=== PATIENT | female | born 1955 | race Caucasian/White ===

== ENCOUNTER 2025-10-05 00:50 | Day surgery (SDC) | payer MEDICARE, SELFPAY ==
[2025-09-30 09:32] VITALS: BMI 33.0
--- NOTE | 2025-09-30 09:43 | PC.NURSE ---
[facility] has started construction of its new state of the art ER which will open Spring 2026. With this, we anticipate parking may be a challenge for some our surgical patients and families. Parking spaces are limited but are available for all Surgical, obstetrics, and ER patients sharing this lot. If you arrive and find you are having a hard time finding a parking space, please note that we understand the challenges, please drive around the hospital and park near Hospital Entrance 1. When you enter this entrance, you can ask a volunteer to direct or take you back to the surgical waiting area to check in. We appreciate everyone?s understanding of these expected challenges while we build for your future. Report to the Outpatient Waiting Room, entrance under the green pavilion located off [address], at time ___11:00am____ on date __10/05/25 . Planned Procedure Time: ___1:00pm .? Time changes happen often and if your time is changed the preop area will call you the afternoon before. - You and your visitor will be asked to self-screen and do not enter if you have any COVID symptoms. Please call surgeon if you need to reschedule. - A mask is optional within the hospital at this time. Patients may have clear liquids (water, carbonated beverages, clear teas, apple juice) until 3 hours prior to surgery with a maximum of 20 ounces. - No food from midnight until time of surgery and no smoking, or chewing tobacco (or any form of nicotine). No chewing gum, candy or mints. (10:00am) Take only the following medications with a SIP of water on the morning of surgery: NONE DO NOT STOP ANY OF YOUR OTHER PRESCRIPTION MEDICATIONS PRIOR TO SURGERY EXCEPT THE FOLLOWING Hold all vitamins and supplements for 3 days per anesthesiologist. Medications to discontinue per physician NONE Date to take last dose____NONE Please no make-up, nail romanian, hairspray, perfume, deodorant, or body powder the day of surgery.? No jewelry (including any body piercings) or valuables the day of surgery, leave them at home.? Please take a shower or bath the night before, or the morning of, surgery with an antibacterial soap.? DIAL Wear comfortable, loose fitting clothing.? - Jewelry must be removed prior to entering the operating room.? Rings and piercings that are not removed may be cut off. - The hospital will not accept responsibility for valuables.? - Please leave all valuables, including medications, at home the day of surgery. If you are going home after surgery, a licensed lead driver must drive you home.? - NO public transportation without another adult if you receive anesthesia. - We recommend that an adult stay with you for 24 hours following discharge. - We also recommend that you do not drive, make important decision, drink alcoholic beverages, or take any drugs that were not prescribed by your health care provider for at least 24 hours after your discharge time. Follow any additional instructions given to you from your surgeon. Telephone instructions given to _Patient and asked if any additional questions and then verbalized understanding. Patient advised to call surgeon office or pre surgery nurse liaison [phone] if any additional questions.
[2025-10-05] VITALS (11 sets, daily range): BP systolic 151–187; BP diastolic 55–93; PULSE 65–90; RESP 13–17; TEMP 36.2–36.3; O2SAT 96–100; BMI 33.4
--- NOTE | ~2025-10-05 | XR_ITS ---
EXAMINATION: XR retrograde pyelo w/stent LT DATE: 10/05/2025 13:37 INDICATION: Left retrograde pyelogram and ureteral stent exchange TECHNIQUE: 9 fluoroscopic images of the abdomen and pelvis were obtained procedure performed by Dr. Avila. Radiologist was not present for the imaging or procedure. The amount of fluoroscopy time used during this procedure was 0.6 minutes. The dose area product was 0.647 mGym^2. COMPARISON: None. FINDINGS: Junior Network Engineer image demonstrates a left intraureteral stent in expected position with large stone projecting over the ureteral pelvic junction. Subsequent images demonstrate cannulation of the left ureter and advancement of a wire into an upper pole calyx. The stone appears to have refluxed into a middle calyx of the left kidney. Subsequent images demonstrate retrograde contrast injection demonstrating a moderately dilated left renal collecting system. Final images demonstrate placement of a new left intraureteral stent with loops formed in the bladder and in an upper pole calyx of the left kidney. IMPRESSION: 1. Left internal ureteral stent exchange with new stents in expected position. 2. Moderate left hydronephrosis with large stone initially seen at the left ureteropelvic junction which is subsequently likely refluxed into a middle calyx of the left kidney. Correlate with procedure note for further detail. Reviewed, dictated and finalized at location A. UNITY RELATIONS REPRESENTATIVE IMPRESSION: 1. Left internal ureteral stent exchange with new stents in expected position. 2. Moderate left hydronephrosis with large stone initially seen at the left ure teropelvic junction which is subsequently likely refluxed into a middle calyx o f the left kidney. Correlate with procedure note for further detail.
--- OUTSIDE RECORDS SUMMARY | 2025-10-05 02:46 | XMS_ITS | Clinical Summary ---
Author Organization [facility] [facility] Address [address] [place] [id number] Care Team Providers Care Log Deckman Name Role Phone Brent Robins MD, Kristi Glass Primary Care Provide r Allergies Active Allergy Reactions Criticality Noted Date Comments Amlodipine Edema Medium 01/25/2022 Lisinopril Cough Low 03/11/2019 cough Medications albuterol HFA (ProAir HFA) 90 mcg/actuation inhalerIndications:Chr onic cough,Moderate persistent asthma without complication Inhale 2 puffs every 4 (four) hours as needed for wheezing or shortness of breath 3 each 4 022 Active zolpidem (AMBIEN) 5 mg tabletIndications:Psyc hophysiological insomnia TAKE 1 TABLET(5 MG) BY MOUTH EVERY NIGHT NEEDED FOR SLEEP 30 tablet 3 025 Active solifenacin (VESIcare) 5 mg tablet Take 2 tablets (10 mg total) by mouth daily as needed [address] (PROTONIX) 40 mg EC tabletIndications:Phar yngoesophageal dysphagia Take 1 tablet (40 mg total) by mouth daily 90 tablet 4 025 2025 Active atorvastatin (LIPITOR) 40 mg tabletIndications:Esse ntial hypertension,Pure hypercholesterolemia Take 1 tablet (40 mg total) by mouth daily 90 tablet 3 024 2024 Discontinued( Patient Reported) meloxicam (MOBIC) 15 mg tabletIndications:Acut e right hip pain Take 1 tablet (15 mg total) by mouth daily as needed for pain 90 tablet 3 024 2024 Discontinued( Patient Reported) zolpidem (AMBIEN) 5 mg tabletIndications:Psyc hophysiological insomnia TAKE 1 TABLET(5 MG) BY MOUTH EVERY NIGHT NEEDED FOR SLEEP 30 tablet 3 025 2024 Discontinued cyclobenzaprine (FLEXERIL) 10 mg tablet Take 1 tablet (10 mg total) by mouth nightly as needed for muscle spasms for up to 10 days 10 tablet 025 2024 Discontinued( Patient Reported) Active Problems Problem Noted Date Diagnosed Date Pharyngoesophageal dysphagia 09/29/2025 Assessment & Plan (09/29/2025 7:30 AM CARDIAC CATH TECH): Chronic stable Well controlled Continue current prescribed medications protonix at current dose Multiple obstructing stones in biliary tract 10/2025 Hydronephrosis with urinary obstruction due to renal calculus 09/29/2025 Assessment & Plan (09/29/2025 7:11 AM CARDIAC CATH TECH): resolved Urinary tract obstruction by kidney stone 2024 Assessment & Plan (09/29/2025 7:10 AM CARDIAC CATH TECH): S/p stent, following urology Cervical radiculopathy 06/09/2025 Preventative health care 08/14/2022 Assessment & Plan (09/29/2025 7:12 AM CARDIAC CATH TECH): Reviewed previous labs and diagnostic test results. Chronic medical problems evaluated and management plans discussed with the patient. Prescription medications, supplements, vitamins and immunizations reviewed. Wear seatbelts. Use sunscreen. Discussed healthy diet and disease prevention and controlling portions including alcohol Discussed importance of scheduling recommended screening tests. Discussed importance of regular physical examinations for health maintenance. 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 Assessment & Plan (04/06/2024 8:03 AM CDT): Reviewed labs, screenings and vaccines Assessment & Plan (08/14/2022 8:47 AM CDT): Reviewed labs from January, do not need update until then Will get screenings done-mammogran and dexa Contineu current medications Recommend weight loss Class 1 obesity due to exces s calories without serious comorbidity with body mass index (BMI) of 33.0 to 33.9 in adult 08/07/2019 Assessment & Plan (09/29/2025 7:30 AM CARDIAC CATH TECH): Monitor weight Stable Likely related to shift work Assessment & Plan (08/11/2024 8:24 AM CDT): Monitor weight Stable but she is unable to lose weight and feels like something is off, checking labs Assessment & Plan (04/06/2024 8:13 AM CDT): Monitor weight Assessment & Plan (01/25/2022 8:56 AM CARDIAC CATH TECH): Weight has stayed stable Assessment & Plan (07/27/2021 9:57 AM CDT): Continue to monitor Assessment & Plan (08/07/2019 8:16 AM CDT): Recommend a diet high in fruits, vegetables, legumes and low in processed foods. Recommend regular physical activity as patient's condition allows. Chronic cough 06/22/2019 Assessment & Plan (08/14/2022 8:46 AM CDT): Suspect this reactive asthma, she states it gets worse when she is stressed and gets worked up Will try an inhaler, if this works will continue If not, we will consider evaluation Assessment & Plan (08/07/2019 8:25 AM CDT): Cont care under pulmonology Improving Atelectasis 06/22/2019 Shift work sleep disorder 06/22/2019 Assessment & Plan (03/09/2025 9:16 AM CDT): Continues to take ambien prn Assessment & Plan (08/07/2019 7:42 AM CDT): Continue Ambien nightly p.r.n. Gastroesophageal reflux disease without esophagi tis 06/22/2019 Assessment & Plan (08/07/2019 7:43 AM CDT): Follow GERD Diet. Keep HOB elevated 30 degrees at bedtime. Avoid late evening or large meals. Avoid spicy, rich or fried foods. Limit caffeine intake. Work on wt loss. Eat calcium and vit d rich foods to avoid Bone loss. Eat Iron rich foods to avoid iron deficiency anemia. B12 level may need monitoring q 1-2yrs if on mcfp therapy. CKD (chronic kidney disease), stage II 6 Assessment & Plan (09/29/2025 7:10 AM CARDIAC CATH TECH): Monitor, renally dose medications Assessment & Plan (08/11/2024 8:24 AM CDT): Monitor, renally dose medications Assessment & Plan (04/06/2024 8:12 AM CDT): Monitor renal function Assessment & Plan (07/27/2021 9:51 AM CDT): Stable at baseline Assessment & Plan (08/07/2019 7:43 AM CDT): Careful with NSAIDs and PPI use Pure hypercholesterolemia 04/17/2016 Assessment & Plan (08/11/2024 8:24 AM CDT): Chronic stable Well controlled Continue current prescribed medications lipitor at current dose Assessment & Plan (04/06/2024 8:13 AM CDT): Will restart statin Assessment & Plan (07/27/2021 9:51 AM CDT): Takes lipitor every day Assessment & Plan (08/07/2019 7:43 AM CDT): Follow step 1 low cholesterol diet. Report if having problems with daily nausea or extreme muscle aches and weaknesses throughout the body. Monitor lipids annually or on a regular basis. Recommend to continue with current medication. Check lab Other abnormal glucose 04/17/2016 Assessment & Plan (01/25/2022 8:57 AM CARDIAC CATH TECH): Will continue to recheck Hgba1c Assessment & Plan (08/07/2019 7:43 AM CDT): A1c: needs checked Watch sugars and carbs in diet. Work on exercise and weight loss Essential hypertension 03/30/2016 Assessment & Plan (03/09/2025 7:54 AM CDT): Still not taking any but blood pressure is fine Assessment & Plan (08/11/2024 8:11 AM CDT): Currently not on any medication and BP is okay today Assessment & Plan (04/06/2024 8:13 AM CDT): Will check at home once she is not in pain and report back her pressures Assessment & Plan (08/14/2022 8:45 AM CDT): Well controlled for her, down significantly Had a rough night at work and had a fight with someone before leaving, suspect this is why it is slightly elevated Assessment & Plan (01/25/2022 8:56 AM CARDIAC CATH TECH): Amlodipine causes lower ankle swelling Will do combo pill hyzaar Assessment & Plan (07/27/2021 9:57 AM CDT): Continue losartan Adding amlodipine today concerned for numbness in her lower lip Stopping mobic Assessment & Plan (08/07/2019 7:43 AM CDT): Follow low sodium DASH Diet. Exercise regularly for CV health and weight loss. Achieve or Maintain normal BMI/Weight. Take medications as prescribed. Report if having porblems with the medication or if develops Chest pains. Monitor BP occly and record. Report if BP consistently over 160/90 or under 90/60 and dizzy and LH. BP is controlled and stable. Insomnia 03/30/2016 Assessment & Plan (09/29/2025 7:30 AM CARDIAC CATH TECH): Chronic stable Well controlled Continue current prescribed medications mehnaz at current dose Assessment & Plan (01/25/2022 8:57 AM CARDIAC CATH TECH): From her work hours and stress from job Resolved Problems Problem Noted Date Diagnosed Date Resolved Date Acute infection of nasal sinus 10/15/2022 04/06/2024 Assessment & Plan (10/15/2022 11:23 AM CARDIAC CATH TECH): Augmentin 875-125 mg twice best for 7 days Medrol dosepack, take per package instructions Benzonatate 100 mg up to three times daily for cough Nasal saline wash, either Neti Pot or Sinus Rinse DAILY or a saline nasal spray 3-4 times a day. Guaifenesin expectorants (Maximum Strength Mucinex, Robitussin, store brand) to loosen secretions. For cough you can use dextromethorphan (Delsym syrup, Robitussin cough capsules or store brand). Avoid decongestants due to risk of raising blood pressure, take otc Coricidin per package directions -Increase fluids, especially water -Steam inhalation and warm compress to face often help relieve pressure -Avoid allergens and excessively dry heat -Sleep with head of bed elevated to encourage drainage. -Use of a humidifier if environment is heated by dry forced - air system -Avoid smoking, second-hand smoke and air pollutants. -If you are not improving or worsening, or develop facial swelling, in the next 3-5 days you must RETURN to the clinic, go to your PCP, or Urgent Care/ER to be SEEN and reevaluated. No further prescriptions or refills will be given by phone without another evaluation. Skin lesion of chest wall 05/24/2020 Itching 05/24/2020 04/06/2024 Obesity 03/30/2016 04/06/2024 Assessment & Plan (08/07/2019 7:44 AM CDT): Recommend a diet high in fruits, vegetables, legumes and low in processed foods. Recommend regular physical activity as patient's condition allows. Encounters Date Type Department Care Team Description 09/29/2025 7:00 AM CARDIAC CATH TECH Office Visit [address] [phone] Kristi Kennedy Jr., MD [facility] health care (Primary Dx); Urinary tract obstruction by kidney stone; CKD (chronic kidney disease), stage II; Primary insomnia; Asymptomatic menopause; Class 1 obesity due to excess calories without serious comorbidity with body mass index (BMI) of 33.0 to 33.9 in adult; Hydronephrosis with urinary obstruction due to renal calculus; Pharyngoesophageal dysphagia 09/23/2025 [facility] [address] [address] Mckenzie Nogueira MA 09/21/2025 [facility] [address] [address] Maryse Liang MA 09/21/2025 [facility] [address] [address] Mckenzie Nogueira MA 09/20/[address] [phone] Kristi Kennedy Jr., MD [facility] 09/17/2025 11:45 AM CDT - 09/17/2025 11:59 PM CDT Hospital Encounter [facility] [address] [place] [address] History of diverticulitis; Generalized abdominal pain Discharge Disposition: Discharge to home or self care 09/17/2025 10:30 AM CDT Office Visit [address] [phone] Kristi Kennedy Jr., MD History of diverticulitis (Primary Dx); Generalized abdominal pain; Urinary tract obstruction by kidney stone 09/17/[address] [phone] Kristi Kennedy Jr., MD CT Results; Test Results 09/17/2025 Nurse Triage [facility] [address] [place] [phone] Kristi Kennedy Jr., MD 08/13/2025 Telephone [facility] [address] [place] [phone] Kristi Kennedy Jr., MD Missed appt 07/21/2025 7:00 AM CDT Therapy [facility] [address] [place] [phone] Dante Leyva, PT Cervical radiculopathy (Primary Dx) 07/15/2025 7:00 AM CDT Therapy [facility] [address] [place] [phone] Dipesh Paez, [employer] Cervical radiculopathy (Primary Dx); Right shoulder pain, unspecified chronicity 07/13/2025 7:00 AM CDT Therapy [facility] [address] [place] [phone] Dipesh Paez, [employer] HAND Cervical radiculopathy (Primary Dx); Right shoulder pain, unspecified chronicity 07/07/2025 Plan of Care Documentation [facility] [address] [place] [phone] 07/06/2025 7:00 AM CDT Therapy [facility] [address] [place] [phone] Dante Leyva, PT Cervical radiculopathy (Primary Dx); Right shoulder pain, unspecified chronicity from Last 3 Months Immunizations Immunization Administration Dates Next Due Influenza, Quadrivalent, Hig h Dose, Preservative Free, Intrr 08/14/2022,07/27/2021 Influenza, Quadrivalent, Spl it, Preservative Free, Intramuscular 08/07/2019,10/18/2017,09/23/2016 Influenza, Trivalent, IM (MDV) 09/24/2016 Influenza, Trivalent, Preser vative Free, Intramuscular 10/10/2017,08/22/2015 Influenza, Unspecified 09/29/2025(Deferr ed: Patient Refused),09/29/2025(Deferred: Patient Refused),08/11/2024(Deferred: Patient Refused),09/18/2023(Deferred: Patient Refused) Pfizer SARS-CoV-2 Monovalent Vaccination (12+ Yrs) PURPLE 08/23/2021,12/27/2020 Pneumococcal Conjugate PCV 13 07/27/2021(Deferre d: Patient Refused) TD Preservative Free 04/02/2016 Tdap 04/02/2016 ZOSTER Recombinant 01/25/2022(Deferred: Patient Refused),07/27/2021(Deferred: Patient Refused) Surgical History Surgery Date Site/Laterality Comments GALLBLADDER SURGERY TUBAL LIGATION FLUORO GUIDED INJECTION SHOULDER LEFT 03/15/2017 Lef t Medical History Medical History Date Comments Hypertension Insomnia Pre-diabetes Chronic kidney disease Hyperlipidemia Obesity 03/30/2016 GERD (gastroesophageal reflux disease) Family History Relation Name Status Comments Father Mother Social History Tobacco Use Types Packs/Day Years Used Date Smoking Tobacco: Former Cigarettes 1 14 Smokeless Tobacco: Never Tobacco Cessation:Counseling Given: Not Answered Alcohol Use Standard Drinks/Week Comments Not Currently 0 (1 standard drink = 0.6 oz pur e alcohol) PHQ-2 Answer Date Recorded PHQ-2 Total Score (If total score is 3 or more points, staff should administer the PHQ-9) 1 09/29/2025 PHQ-9 Answer Date Recorded PHQ-9 Total Score 8 04/06/2024 AUDIT-C Answer Date Recorded Q1: How often do you have a drink containing alcohol? Never 09/29/2025 Q2: How many drinks containi ng alcohol do you have on a typical day when you are drinking? Patient does not drink Q3: How often do you have si x or more drinks on one occasion? Never 09/29/2025 Comments No Sex and Gender Information Value Date Recorded Sex Assigned at Not on file Legal Sex Female 5:51 PM CARDIAC CATH TECH Gender Identity Not on file Sexual Orientation Not on file Obstetrics History Para Term AB IAB SAB Ectopic Multiple Livin g Live Births 2 2 2 Date Outcome GA Total Labor Labor/2nd/3rd Weight Sex Type Anes PTL Marylin A1 A5 Name Clin Term Term Last Filed Vital Signs Vital Sign Reading Time Taken Comments Blood Pressure 144/76 09/29/2025 6:54 AM CARDIAC CATH TECH Pulse 64 09/29/2025 6:54 AM CARDIAC CATH TECH Temperature 36.1 C (97 F) 09/29/2025 6:54 AM CARDIAC CATH TECH Respiratory Rate 18 09/29/2025 6:54 AM CARDIAC CATH TECH Oxygen Saturation 97% 09/29/2025 6:54 AM CARDIAC CATH TECH Inhaled Oxygen Concentration - - Weight 83 kg (183 lb) 09/29/2025 6:54 AM CARDIAC CATH TECH Height 157.5 cm (5' 2) 09/29/2025 6:54 AM CARDIAC CATH TECH Body Mass Index 33.47 09/29/2025 6:54 AM CARDIAC CATH TECH Plan of Treatment Health Maintenance Due Date Last Done Comments Hepatitis B Screening 1973 Osteoporosis Screening-Bone Density Scan 05/07/2018 05/07/2016, 05/02/2016 Covid-19 Vaccine ( season) 2025 08/23/2021, 01/22/2021, 12/27/2020 Zoster Vaccine (1 of 2) 03/09/2026 Post poned from 2005 (Insurance / Financial) DTaP/Tdap/Td Vaccine (3 - Td or Tdap) 04/02/2026 04/02/2016, 04/02/2016 Breast Cancer Screening-Mammogram 04/05/2026 04/05/2025, 07/24/2018, 07/24/2018, Additional history exists Influenza Vaccine (#1) 2026 , 07/27/2021, 08/07/2019, Additional history exists Postponed from 07/19/2025 (Patient declined, but will receive in the future) Depression Screening 09/29/2026 09/29/2025, 09/17/2025, 06/09/2025, Additional history exists Fall Risk Assessment 09/29/2026 09/29/2025, 04/06/2024, 08/14/2022, Additional history exists Well Visit 65+ 09/29/2026 09/29/2025, 05, 08/14/2022, Additional history exists Colon Cancer Screening-Colonoscopy 09/24/2028 09/24/2018 Colon Cancer Screening-CT Colonography Discontinued 09/24/2018 Colon Cancer Screening-DNA Stool Discontinued 09/24/2018 Colon Cancer Screening-FIT Discontinued 09/24/2018 Colon Cancer Screening-Sigmoidoscopy Discontinued 09/24/2018 Hepatitis C Screening Discontinued Pneumococcal vaccine 65+ Discontinued Procedures Procedure Name Priority Date/Time Associated Diagnosis Comments CT ABDOMEN PELVIS WO CONTRAST Schedule AMAURY, Read AMAURY (Appt Today, Awaiting Results) 09/17/2025 11:55 AM CDT History of diverticulitis Generalized abdominal pain SCREENING MAMMOGRAM BILATERAL W LEONARD Schedule Routine, Read Routine (OP Routine) 04/05/2025 2:28 PM CDT Screening mammogram for breast cancer COLONOSCOPY Routine 09/24/2018 DEXA SCAN Routine 05/07/2016 from Last 3 Months or Most Recently Relevant to Health Maintenance Results * CT Abdomen Pelvis WO Contrast (09/17/2025 11:55 AM CDT) Anatomical Region Laterality Modality Body N/A Computed Tomogra phy 09/17/2025 12:1 1 PM CDT Impressions 09/17/2025 12:11 PM CDT 1. Moderate left-sided obstructive uropathy with a 1.6 cm obstructing calculus in the left ureteropelvic junction. 2. Mild acute uncomplicated diverticulitis involving the distal descending colon and proximal sigmoid colon. No definite unenhanced CT evidence of perforation or peridiverticular abscess. Further evaluation with colonoscopy is recommended after the conclusion of patient's acute symptoms, if one has not been performed recently as clinically indicated. 3. No definite evidence of a bowel obstruction. 4. Circumferential mucosal thickening of the urinary bladder, which may related ascension versus cystitis. Clinical correlation with urinary analysis is recommended as clinically indicated. 5. Nonobstructing left renal calculus measuring 0.5 cm. 6. Normal appendix. The findings were discussed with Dr. Kennedy by Dr. Quinn on 09/17/2025 12:09 PM . Electronically signed by: Prosper Quinn D.O. Narrative 09/17/2025 12:11 PM CDT EXAMINATION: CT ABDOMEN PELVIS WO CONTRAST ORDERING HEALTHCARE PROVIDER: KRISTI KENNEDY Jr. HISTORY: Diverticulitis, complication suspected. Hx of diverticulitis . Left lower abdominal pain /flank pain x 2-3 days[address] TECHNIQUE: CT abdomen and pelvis without intravenous and without oral contrast. Reconstructed coronal and sagittal MPR images reviewed. All images stored on PACS. Automated exposure control was used as a dose optimization technique for this examination. COMPARISON: None. FINDINGS: The sensitivity for detection of visceral lesions is diminished without the use of intravenous contrast. LOWER CHEST: The heart size is normal. There is no definite evidence of a pericardial effusion. There are mild atherosclerotic changes of aorta. There is minimal to mild bibasilar subsegmental atelectasis and scarring. There is a small hiatal hernia. LIVER: The liver is grossly normal in size and contour. GALLBLADDER: Surgically absent. BILIARY:There is no definite evidence of intrahepatic or extrahepatic biliary ductal dilatation. SPLEEN: The spleen is grossly normal in size and unremarkable. PANCREAS: The pancreas has a grossly unremarkable unenhanced CT appearance. ADRENALS: The bilateral adrenal glands are grossly symmetrical and unremarkable. KIDNEYS/URINARY TRACT: There is no definite unenhanced CT evidence of a focal renal lesion. There is a 0.5 cm nonobstructing left renal calculus. There is moderate left hydronephrosis with a 1.6 cm obstructing calculus in the left ureteropelvic junction. There is circumferential mucosal thickening of the urinary bladder. GI: There is no definite evidence of a bowel obstruction. The appendix is visualized without definite evidence of pericecal or periappendiceal inflammatory changes to suggest appendicitis. There is colonic diverticulosis with mucosal thickening of the distal descending colon and proximal sigmoid colon with pericolonic inflammatory changes. There is a small fat-containing periumbilical hernia. There is no definite evidence of free air in the abdomen and pelvis to suggest perforation. There is no definite evidence of free fluid in the abdomen and pelvis. There is no definite unenhanced CT evidence of a pericolonic fluid collection to suggest peridiverticular abscess. There is no definite CT evidence of lymphadenopathy in the abdomen and pelvis. REPRODUCTIVE: There is no definite unenhanced CT evidence of a large ovarian or uterine mass. MUSCULOSKELETAL: There is mild osteopenia. There is a mild dextroscoliotic curvature the spine with degenerative changes. OTHER: No other acute findings. Procedure Note Prosper Quinn, DO - 09/17/2025 EXAMINATION: CT ABDOMEN PELVIS WO CONTRAST ORDERING HEALTHCARE PROVIDER: KRISTI KENNEDY Jr. HISTORY: Diverticulitis, complication suspected. Hx of diverticulitis . Left lower abdominal pain /flank pain x 2-3 days[address] TECHNIQUE: CT abdomen and pelvis without intravenous and without oral contrast. Reconstructed coronal and sagittal MPR images reviewed. All images stored on PACS. Automated exposure control was used as a dose optimization technique for this examination. COMPARISON: None. FINDINGS: The sensitivity for detection of visceral lesions is diminished without the use of intravenous contrast. LOWER CHEST: The heart size is normal. There is no definite evidence of a pericardial effusion. There are mild atherosclerotic changes of aorta. There is minimal to mild bibasilar subsegmental atelectasis and scarring. There is a small hiatal hernia. LIVER: The liver is grossly normal in size and contour. GALLBLADDER: Surgically absent. BILIARY:There is no definite evidence of intrahepatic or extrahepatic biliary ductal dilatation. SPLEEN: The spleen is grossly normal in size and unremarkable. PANCREAS: The pancreas has a grossly unremarkable unenhanced CT appearance. ADRENALS: The bilateral adrenal glands are grossly symmetrical and unremarkable. KIDNEYS/URINARY TRACT: There is no definite unenhanced CT evidence of a focal renal lesion. There is a 0.5 cm nonobstructing left renal calculus. There is moderate left hydronephrosis with a 1.6 cm obstructing calculus in the left ureteropelvic junction. There is circumferential mucosal thickening of the urinary bladder. GI: There is no definite evidence of a bowel obstruction. The appendix is visualized without definite evidence of pericecal or periappendiceal inflammatory changes to suggest appendicitis. There is colonic diverticulosis with mucosal thickening of the distal descending colon and proximal sigmoid colon with pericolonic inflammatory changes. There is a small fat-containing periumbilical hernia. There is no definite evidence of free air in the abdomen and pelvis to suggest perforation. There is no definite evidence of free fluid in the abdomen and pelvis. There is no definite unenhanced CT evidence of a pericolonic fluid collection to suggest peridiverticular abscess. There is no definite CT evidence of lymphadenopathy in the abdomen and pelvis. REPRODUCTIVE: There is no definite unenhanced CT evidence of a large ovarian or uterine mass. MUSCULOSKELETAL: There is mild osteopenia. There is a mild dextroscoliotic curvature the spine with degenerative changes. OTHER: No other acute findings. IMPRESSION: 1. Moderate left-sided obstructive uropathy with a 1.6 cm obstructing calculus in the left ureteropelvic junction. 2. Mild acute uncomplicated diverticulitis involving the distal descending colon and proximal sigmoid colon. No definite unenhanced CT evidence of perforation or peridiverticular abscess. Further evaluation with colonoscopy is recommended after the conclusion of patient's acute symptoms, if one has not been performed recently as clinically indicated. 3. No definite evidence of a bowel obstruction. 4. Circumferential mucosal thickening of the urinary bladder, which may related ascension versus cystitis. Clinical correlation with urinary analysis is recommended as clinically indicated. 5. Nonobstructing left renal calculus measuring 0.5 cm. 6. Normal appendix. The findings were discussed with Dr. Kennedy by Dr. Quinn on 09/17/2025 12:09 PM . Electronically signed by: Prosper Quinn D.O. Kristi Kennedy Jr., MD IM CT PROCEDURES Fin al Result * Screening Mammogram Bilateral W Leonard (04/05/2025 2:28 PM CDT) Anatomical Region Laterality Modality Breast Bilateral Mammography Impressions 04/05/2025 2:33 PM CDT Bilateral No evidence of malignancy in either breast. OVERALL BI-RADS FINAL ASSESSMENT: 1 - Negative RECOMMENDATION: Recommend bilateral annual screening mammography. Narrative 04/05/2025 2:33 PM CDT EXAMINATION: Screening Mammogram Bilateral W Leonard: 04/05/2025 COMPARISON: Relevant prior studies available at the time of interpretation were reviewed. TECHNIQUE: Mammography was performed with 2D and digital breast tomosynthesis (DBT) images. CAD was utilized. BREAST PARENCHYMAL COMPOSITION: The breasts are heterogeneously dense, which may obscure small masses. FINDINGS: Bilateral There is no suspicious mass, calcification, or architectural distortion in either breast. Kristi Kennedy Jr., MD IMG MAMMO PROCEDURES Final Result * COLONOSCOPY (09/24/2018) Colonoscopy Unknown Historical Provider HEALTH MAINTENANCE Final Result * DEXA SCAN (05/07/2016) DEXA Scan Unknown Historical Provider HEALTH MAINTENANCE Final Result from Last 3 Months or Most Recently Relevant to Health Maintenance Insurance [employer] MEDICARE PPO Care Teams Log Deckman Relationship Specialty Start Date End Date Krisit Kennedy Jr., MD [address] [place] [id number] PCP - General Internal Medicine 06/23/20
--- OUTSIDE RECORDS SUMMARY | 2025-10-05 02:46 | XMS_ITS | Encounter Summary ---
Author Organization [facility] Healthcare Address [address] [place] [address] Care Team Providers Care Lead Ramp Agent Name Role Phone Brent Robins MD, Trevon Glass Primary Care Provide r Mirlande Mckenzie COTY Unavailable Reason for Visit * Reason Onset Date Comments MIGUE or AWV 09/20/2025 Encounter Details Date Type Department Care Team ([facility] st Contact Info) Description 09/20/2025 Telephone [facility] Medical Group Primary Care [address] [place] [phone] Trevon Kennedy Jr., MD [address] [place] [phone] MIGUE or AWV Social History Tobacco Use Types Packs/Day Years Used Date Smoking Tobacco: Former Cigarettes 1 14 Smokeless Tobacco: Never Alcohol Use Standard Drinks/Week Comments Yes 0 (1 standard drink = 0.6 oz pur e alcohol) PHQ-2 Answer Date Recorded PHQ-2 Total Score (If total score is 3 or more points, staff should administer the PHQ-9) 1 09/17/2025 PHQ-9 Answer Date Recorded PHQ-9 Total Score 8 04/06/2024 AUDIT-C Answer Date Recorded Q1: How often do you have a drink containing alc ohol? Monthly or less 09/17/2025 Q2: How many drinks containi ng alcohol do you have on a typical day when you are drinking? 1 or 2 09/17/2025 Q3: How often do you have si x or more drinks on one occasion? 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 Kennedy. Pt then went to [facility] and had emergency surgery done after visit on 09/17/25 (a stint was placed), Pt was released 09/18/25. Pt states she also has to go to [place] in the next two weeks to have another procedure done. Currently Pt has her AWV set for 09/29/25, wants to know if she will need MIGUE appt before then? Or if she can just come to her awv? MAN documented in this encounter Plan of Treatment Not on file documented as of this encounter Visit Diagnoses Not on filedocumented in this encounter Care Teams Lead Ramp Agent Relationship Specialty Start Date End Date Trevon Kennedy Jr., MD [address] [place] [phone] PCP - General Internal Medicine 06/23/20 Mckenzie Nogueira MA [address] [place] [address] ACO Care Radiologist Chief Of Breast Imaging 09/21/25 09/22/25 documented as of this encounter
--- OUTSIDE RECORDS SUMMARY | 2025-10-05 02:46 | XMS_ITS | Clinical Summary ---
Author Organization [facility] Address [address] [place] [address] Care Team Providers Care Property Management Intern Name Role Phone Mare Turner PA-C Primary Care Provider [phone] Source Comments [facility],non-owned Affiliates and Associated Physician Practices is amultiple site organization consisting of ambulatory clinics and hospital sitesin [place], [place], [place] and [place]. This disclosure is being madepursuant to the Care Everywhere program and may not contain all information available regarding this patient. 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 Gender Identity Not on file Sexual Orientation Not on file Plan of Treatment Health Maintenance Due Date Last Done Comments BONE DENSITY TESTING 1955 COLOGUARD (AGES 45-75) - COL ON CA SCREENING 1955 COLON MONITORING 1955 COLONOSCOPY - COLON CA SCREENING 1955 CT COLONOGRAPHY - COLON CA SCREENING 1955 Colorectal Cancer Screening 1955 FIT - COLON CA SCREENING 1955 FLEX SIG - COLON CA SCREENING 1955 LIPID TESTING 1955 MAMMOGRAM 1955 HEPATITIS C SCREENING 01/13/1973 DTAP/TDAP/TD VACCINES (1 - Tdap) 1974 PNEUMOCOCCAL VACCINE 50+ (1 of 1 - PCV) 2005 ZOSTER VACCINE (1 of 2) 2005 DEPRESSION SCREENING 11/18/2024 COVID-19 VACCINE (1 - 2024-2 6 season) 2025 INFLUENZA VACCINE (#1) 2025 9, 10/18/2017, 09/24/2016 Respiratory Syncytial Virus (RSV) Vaccine Pt: or over 60 yrs (1 - 1-dose 75+ series) 2030 HEPATITIS B VACCINE Aged Out No longe r eligible based on patient's age to complete this topic HIB VACCINE Aged Out No longer eligi ble based on patient's age to complete this topic HPV VACCINE Aged Out No longer eligi ble based on patient's age to complete this topic MENINGOCOCCAL (Group B) VACCINE SHARED DECISION-MAKING Aged Out No longer eligible based on patient's age to complete this topic MENINGOCOCCAL GROUPS A/C/Y/W VACCINE Aged Out No longer eligible b ased on patient's age to complete this topic Insurance DR [id number] Care Teams Property Management Intern Relationship Specialty Start Date End Date Mare Turner PA-C [address] [place] [address] PCP - General 10/02/19
--- OUTSIDE RECORDS SUMMARY | 2025-10-05 02:47 | XMS_ITS | Encounter Summary ---
Author Organization [facility] Care Team Providers Care Ostrich Farm Worker Name Role Phone Mare Turner Primary Care Provider [phone] Brent Robins MD, Trevon Glass Primary Care Provide r Mckenzie Nogueira MA Unavailable [phone] Encounter Details Date Type Department Care Team (Latest Contact Info) Description 03/30/2016 Orders Only [facility] CLINCONV ProviderErvin MD [address] [place] [id number] Social History Tobacco Use Types Packs/Day Years Used Date Smoking Tobacco: Never Assessed Comments Unknown Sex and Gender Information Value Date Recorded Sex Assigned at Not on file 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 Historical Provider [facility] JUANJO BULLOCK Final Result documented in this encounter Visit Diagnoses Not on filedocumented in this encounter Additional Health Concerns Infection Onset Date Last Indicated Resolved Time COVID: Suspected 10/22/2022 10/22/2022 10/22/2022 3:12 PM NURSING PROFESSOR documented as of this encounter Care Teams Ostrich Farm Worker Relationship Specialty Start Date End Date Mare Turner PA [address] [place] [address] PCP - General Internal Medicine 02/13/19 06/22/20 Trevon Kennedy Jr., MD [address] [place] [address] PCP - General Internal Medicine 06/23/20 Mckenzie Nogueira MA [address] [place] [address] [address] [place] [address] ACO Care Prescription Benefit Specialist 09/21/25 09/22/25 documented as of this encounter
--- NOTE | 2025-10-05 09:24 | WPDHPUPDATE1 ---
History and Physical Update Update Date/Time: 10/05/25 09:24 History and Physical has been reviewed, including an updated exam of the patient. There are NO changes in the patient's condition. Risks, benefits, and alternatives have been discussed and questions answered. Patient agrees to proceed with procedure.
--- NOTE | 2025-10-05 09:24 | PM.HPGS ---
History of Present Illness History of Present Illness Consent: Risks, benefits, and alternatives have been discussed and questions answered. Patient agrees to proceed with procedure. Chief complaint: left ureteral and renal stone Narrative: Kia Soto is a 70 year old female who was found on recent imaging to have large volume stone burden in her left kidney measuring over 2 cm. She had placement of left ureteral stent recently and presents today for a staged endoscopic surgery for stone treatment using CVAC. He denies any changes past her baseline and is ready for the procedure today. Review of Systems Review of Systems: Constitutional: No fevers or chills Eyes: No changes in vision HENT: No hearing loss Cardiovascular: No chest pain or palpitations Respiratory: No shortness of breath, cough, wheezing GI: No abdominal pain, nausea, or vomiting : No dysuria or difficulty urinating Heme: No easy bruising or bleeding Skin: No rash or itching MSK: No myalgias or joint pain Psych: No hallucinations Neuro: No lateralized numbness or tingling PMFSH Social History Social History Smoking status: Never smoker Second hand tobacco smoke exposure: No Alcohol intake: never Substance use: never Living arrangements: with family Additional living arrangements comments: Spiritual care concerns: No Meds Home Medications and Allergies Home Medications ?Medication ?Instructions ?Recorded ?Confirmed ?Type zolpidem 5 mg tablet (Ambien) 5 mg PO HS PRN sleep 09/30/25 09/30/25 History Allergies Allergy/AdvReac Type Severity Reaction Status Date / Time amlodipine AdvReac Intermediate Swelling Verified 09/30/25 09:31 lisinopril AdvReac Intermediate cough Verified 09/30/25 09:31 Exam Narrative: General: Alert, no acute distress Head: Normocephalic, atraumatic Eyes: Extraocular movements intact Neck: No JVD, trachea midline Respiratory: Symmetric chest rise, nonlabored breathing on room air CV: Normal rate, adequate peripheral perfusion Abdomen: Soft, nontender, nondistended Skin: Warm/dry Extremities: No peripheral edema, no cyanosis Neuro: No focal deficits Psych: Answers questions appropriately, appropriate mood Assessment and Plan Assessment and plan (1) Urolithiasis: Code(s): N20.9 - Urinary calculus, unspecified Status: Acute Assessment and Plan: 70-year-old female with large volume stone burden in her left kidney status post recent placement of left ureteral stent - To OR for cystoscopy, left retrograde pyelogram, ureteroscopy with CVAC, left ureteral stent exchange - Risks, benefits, alternatives reviewed with the patient. She is amenable to proceed. - 2 grams IV Ancef construction services technician to OR - Anticipate discharge home thereafter
--- NOTE | 2025-10-05 09:44 | WPDANESEPPF ---
Anes - Initial Pre Proc Eval Procedure: Operation Date: 10/05/25 11:30 Proposed Procedures p Cystoscopy, Left Retrograde Pyelogram, Left Ureteroscopy, Left Ureteral Stent Exchange - Monroe Avila MD Date/Time: 10/05/25 09:44 Surgeon: Monroe Avila MD Pre Op Diagnosis: left ureteral and renal stone Patient Data Age: 70 Gender: F Height: 1.57 m Weight: 82 kg Allergies Allergy/AdvReac Type Severity Reaction Status Date / Time amlodipine AdvReac Intermediate Swelling Verified 09/30/25 09:31 lisinopril AdvReac Intermediate cough Verified 09/30/25 09:31 Home Medications ?Medication ?Instructions ?Recorded ?Confirmed ?Type zolpidem 5 mg tablet (Ambien) 5 mg PO HS PRN sleep 09/30/25 09/30/25 History Patient hx anesthesia problems: none Family hx anesthesia problems: none Results Review: All pre-operative results and documents have been reviewed as part of the pre-operative evaluation. [facility] Past Medical History Medical History (Updated 10/05/25 @ 09:45 by Bernardino Hickey MD) Obesity Surgical History Surgical History (Updated 10/05/25 @ 09:45 by Bernardino Hickey MD) Hx of cystoscopy Social History Social History Smoking status: Never smoker Second hand tobacco smoke exposure: No Alcohol intake: never Substance use: never Living arrangements: with family Additional living arrangements comments: Spiritual care concerns: No Anes - Eval Final PreProcedure Day of Procedure 10/05/25 09:44 Patient weight: obese Heart: regular rate and rhythm Lungs: clear to auscultation Airway: Mallampati scale class II Neurological: alert and oriented Last oral intake: >/= 8 hours ASA classification: II Emergent: no Anesthetic plan: proceed Anesthesia type and monitoring: general LMA and standard monitoring Results Review: All pre-operative results and documents have been reviewed as part of the pre-operative evaluation. Informed Consent: The patient's anesthetic plan and its attendant risks and benefits were discussed with the patient/family/POA. Questions were solicited and answers provided to the satisfaction of the patient/family/POA.
[2025-10-05] MEDS: LACTATED RINGERS 1,000 ML 30 ML IV CONT ×2 (09:50→13:09)
[2025-10-05] MEDS: ceFAZolin 2 GM in SODIUM CHLORIDE 0.9% IV 50 ML 100 ML IVPB (11:17)
--- NOTE | 2025-10-05 13:03 | S_PTH ---
PATIENT: Kia Sinclair LOC: [facility] U#:[id number] AGE/SX: 70/F ROOM: RE10/05/[address]: Monroe Avila MD : 1955 BED: DIS: 10/05/2025 SPEC #: [id number] RECD: 10/05/25 13:06 STATUS: NOEMÍ RELeda #: [id number] KIKA: 10/05/25 13:[address]: Monroe Avila DEPT: [facility] Surgical RECD BY: Cade Bruno ENTERED: 10/05/25 13:06 SP TYPE: Surgical OTHR DR: Trevon KennedyJr. MD Tissues: A - Stone Procedures: Gross Exam Level 1 Crystalline Analysis
--- NOTE | 2025-10-05 13:22 | W.PM.PROC2 ---
Procedure Note - Detailed Date of Procedure 10/05/25 Pre-op Diagnosis left ureteral and renal stone Post-op Diagnosis Same Procedure Performed 1. Cystoscopy 2. Left retrograde pyelogram with interpretation 3. Left ureteroscopy with laser lithotripsy and CVAC 4. Left ureteral stent exchange Surgeon Monroe Avila MD Anesthesia General Findings 1. Cystoscopy revealed an appropriately positioned left ureteral stent with no suspicious lesions, tumors, active bleeding, or stones in the lower urinary tract 2. Modifier 22 -- please note that this case required significantly greater effort, increased intensity, time, technical difficulty of procedure, and physical and mental effort required, than is usually needed for this procedure secondary to the significant and large stone burden exceeding 2 cm as well as the large and very densely impacted 1.6 cm stone at the left ureteropelvic junction which first required careful and extensive laser lithotripsy through a traditional ureteroscope in order to fragment the stones and push them in the kidney followed by performing CVAC lithotripsy with aspiration of stone fragments. Overall stone treatment time was roughly 1.5 to 2 hours. 3. Left retrograde pyelogram performed after stone treatment showed mild left hydronephrosis but no contrast extravasation or filling defects 4. Pullback ureteroscopy revealed no residual ureteral stones. Given the impacted stone at the left UPJ there was mucosal edema at this location. There was no ureteral injury. 5. Successful left ureteral stent exchange without strings attached Description of Procedure After informed consent was obtained, the patient was brought back to the operating theatre and placed in the supine position on the operating table. Pre-operative antibiotics were confirmed to have been administered. Anesthesia was induced. The patient was moved into the dorsal lithotomy position and prepped and draped in the standard sterile fashion for an endoscopic case. All pressure points were padded. Bilateral sequential compression devices were on and noted to be functioning. A formal timeout was performed with Dr. Avila in attendance to confirm the correct patient, site/laterality, and procedure and all were in agreement to proceed. To begin with, I atraumatically advanced a lubricated 22-Romanian rigid cystoscope transurethrally into the patient's bladder. Pancystoscopy was performed with findings as noted above. Attention was then turned to the left ureteral orifice, from which was seen emanating the patient's left existing stent in appropriate position. Alongside the stent I advanced a Sensor up the level of left kidney under fluoroscopy. I then removed the cystoscope and secured the Sensor wire to the drapes with hemostat. I then reinserted the cystoscope into the bladder and used flexible graspers to grasp the existing stent and bring it out through the urethral meatus. The 2nd stent was cannulated with a 2nd safety Glidewire and advanced up to the level of left kidney under fluoroscopy. Next, I advanced a 12/14 Romanian 36 cm ureteral access sheath and under direct fluoroscopic guidance I advanced this to the level of the left proximal ureter, just distal to a large radiopaque stone at the level of left ureteropelvic junction. I then removed the inner sheath and advanced the CVAC scope through the outer sheath. There was a very large approximately 1.6 cm densely impacted stone at the left ureteropelvic junction. I was unable to visualize my laser fiber as I advanced it through the CVAC scope. As such, I asked for a flexible digital ureteral scope and advanced this through the access sheath and was able to visualize my 200 micron Geoffrey laser fiber. Next, for an extended period of time, roughly 30-45 minutes, I carefully lasered the stone in order to fragmented and pushed these large fragments into the kidney to perform CVAC. This process significantly extended the time of the surgery and also required greater effort, increased intensity, physical and mental effort, and technical difficulty of the procedure. Afterwards, I exchanged the flexible digital ureteroscope for the CVAC scope and continued to perform laser lithotripsy. This process was continued for approximately 45 minutes. I periodically aspirated out the stone fragments. Afterwards, there were no significant sized stone fragments that were appreciated to be remaining. Next, through the CVAC scope positioned in the left renal pelvis I performed a left-sided retrograde pyelogram in order to delineate the left collecting system in anticipation of stent exchange; see above for intraoperative left retrograde pyelogram findings. I then performed pullback ureteroscopy while simultaneously removing the access sheath and noted no stones nor notable injury; there was some mucosal edema where the stone had been impacted. I then backloaded the cystoscope onto the Sensor wire which was advanced transurethrally into the patient's bladder with attention drawn to the left ureteral orifice. Over top of the wire, a 6-Romanian x 24 cm JJ stent was advanced and the pusher was used to deploy the stent in place, confirming a good proximal curl in the left kidney under fluoroscopy and a good distal curl in the bladder under both fluoroscopic and direct cystoscopic vision. The patient's bladder was then emptied and the cystoscope was removed, essentially concluding the case. At the conclusion of the case all sponge, instrument, and sharp counts were correct x 2. The patient was then awoken from anesthesia and taken to the recovery room in stable condition. The patient tolerated the procedure well and there were no immediate complications noted. Disposition: The patient will be monitored in the PACU and discharge home was clearing PACU protocol. She will follow up in about 2 weeks for office cystoscopy and left ureteral stent removal. Patient's was provided with an update following the surgery and all questions were answered to his satisfaction at the conclusion of our discussion
== END 2025-10-05 15:17 | disposition home or self-care (01) ==
PROVIDERS: PCP Hospitalist; Visit Provider Urology
PROC: (CPT 52352; principal; 2025-10-05 11:30)
DX: N20.2 Calculus of kidney with calculus of ureter (principal); E66.9 Obesity, unspecified; Z68.33 Body mass index [BMI] 33.0-33.9, adult
CPT/HCPCS: 52356; C9761; 74420; 82365; 88300; J0690; C1747; C1758; C1769; C2617; J0360; J1100; J2003; J2405; J2704; J3010; J7120; Q9966